=== PATIENT | male | born 1970 | race Hispanic/Latino ===

== ENCOUNTER 2018-03-16 20:34 | Emergency (ER) | payer BC, OTHER ==
[2018-03-16 20:37] VITALS: BP 151/83; PULSE 95; RESP 19; TEMP 98.8; O2SAT 99
[2018-03-16] MEDS ORDERED: Naproxen 500 MG TAB PO ONE ×2 (20:52→20:57)
--- NOTE | 2018-03-16 20:56 | ED PDOC ---
Lower Extremity Pain/Injury Time Seen by Provider: 03/16/18 20:41 Chief Complaint (Nursing): Abnormal Skin Integrity Chief Complaint (Provider): left foot injury History Per: Patient History/Exam Limitations: no limitations Onset/Duration Of Symptoms: Mins Current Symptoms Are (Timing): Still Present Additional Complaint(s): 48 y/o male brought in by EMS for evaluation of puncture wound to left foot sustained prior to arrival. Patient states he stepped on a piece of glass that went through his sneaker and cut bottom of his foot. Patient reports pain with weight bearing. Denies numbness/weakness left lower extremity, limitation of movement. Tetanus up to date. Past Medical History Reviewed: Historical Data, Nursing Documentation, Vital Signs Vital Signs: Last Vital Signs Temp 98.8 F 03/16/18 20:36 Pulse 95 H 03/16/18 20:36 Resp 19 03/16/18 20:36 BP 151/83 H 03/16/18 20:36 Pulse Ox 99 03/16/18 20:36 - Medical History PMH: No Chronic Diseases - Family History Family History: States: No Known Family Hx - Home Medications Home Medications: Ambulatory Orders Medication Instructions Recorded Cephalexin [cephalexin] 500 mg PO Q6 #19 cap 03/16/18 Ciprofloxacin HCl [Cipro] 500 mg PO Q12 #9 tablet 03/16/18 Naproxen [Naprosyn] 500 mg PO Q12 PRN #20 tablet 03/16/18 - Allergies Allergies/Adverse Reactions: Allergies Allergy/AdvReac Type Severity Reaction Status Date / Time No Known Allergies Allergy Verified 03/16/18 20:36 Review of Systems ROS Statement: Except As Marked, All Systems Reviewed And Found Negative Musculoskeletal: Positive for: Foot Pain (left) Physical Exam - Reviewed Nursing Documentation Reviewed: Yes Vital Signs Reviewed: Yes - Physical Exam Appears: Positive for: Well, Non-toxic, No Acute Distress Pulses-Dorsalis Pedis (L): 2+ Pulses-Dorsalis Pedis (R): 2+ Pulses-Post. Tibialis (L): 2+ Pulses-Post. Tibialis (R): 2+ Extremity: Positive for: Normal ROM, Capillary Refill, Other (0.3cm puncture wound noted inferior to base of 2nd digit, plantar aspect, of left foot. No foreign body, drainage, surrounding edema, or erythema noted. Distal NV/motor intact ). Negative for: Deformity, Swelling Neurologic/Psych: Positive for: Alert, Oriented. Negative for: Motor/Sensory Deficits - ECG O2 Sat by Pulse Oximetry: 99 - Other Rad xray left foot X-Ray: Viewed By Me X-Ray Interpretation: no acute findings - Progress ED Course And Treament: xray naproxen cipro keflex wound care Wound irrigated with 250mL NS bacitracin applied bandage and surgical shoe applied Patient was educated on wound care, advised follow up PMD 2-3 days. Rx cipro, keflex, naproxen given Return precautions given Disposition - Clinical Impression Clinical Impression: Puncture wound of left foot - Patient ED Disposition Is Patient to be Admitted: No Counseled Patient/Family Regarding: Studies Performed, Diagnosis, Need For Followup, Rx Given - Disposition Referrals: Podiatry Clinic [Outside] Disposition: Routine/Home Disposition Time: 22:17 Condition: STABLE Prescriptions: Cephalexin [cephalexin] 500 mg PO Q6 #19 cap Ciprofloxacin HCl [Cipro] 500 mg PO Q12 #9 tablet Naproxen [Naprosyn] 500 mg PO Q12 PRN #20 tablet PRN Reason: Pain, Moderate (4-7) Instructions: Wound Care
--- NOTE | 2018-03-17 12:01 | RAD ---
Date of service: 03/16/2018 PROCEDURE: Left Foot Radiographs. HISTORY: stepped on glass COMPARISON: None. FINDINGS: BONES: Normal. No fracture. JOINTS: Normal. SOFT TISSUES: No visulaized radiopaque/visualized foreign body. OTHER FINDINGS: None. IMPRESSION: No significant or acute findings to account for/ related to the clinical presentation.
== END 2018-03-16 22:38 | disposition home or self-care (01) ==
LOC: H.ER 20:34
DX: S91.332A Puncture wound without foreign body, left foot, initial encounter (principal); W25.XXXA Contact with sharp glass, initial encounter